=== PATIENT | female | born 1930 | race Caucasian/White ===

== ENCOUNTER → 2017-02-16 | Outpatient (CLI) | payer MEDICARE ==
[~2017-02-16] MED LIST: ALPR0.25 PO; FURO20TA PO; HYDR-3583 PO; HYDR25TA5 PO; LISI2.5T3 PO; MOBI15TA PO; OMEP20CA2 PO; OXYB5TAB10 PO; POTA8CAP PO; SOMA250T PO
--- NOTE | 2017-02-17 10:45 | EKG ---
Date Performed: 02/16/2017 Time Performed: 12:43:05 PTAGE: 86 years EKG: Sinus rhythm RIGHT BUNDLE BRANCH BLOCK LEFT ANTERIOR FASCICULAR BLOCK POSSIBLE SEPTAL MYOCARDIAL INFARCTION , PRO BABLY OLD ABNORMAL ECG NO PREVIOUS TRACING DOCTOR: Iris Marroquin Interpretating Date/Time 02/17/2017 10:43:21
== END ==
LOC: HCAV 12:34
PROVIDERS: ATTEND Obstetrics & Gynecology Gynecologic Oncology
DX: Z01.810 Encounter for preprocedural cardiovascular examination (principal); R94.31 Abnormal electrocardiogram [ECG] [EKG]
CPT/HCPCS: 93005

== ENCOUNTER 2017-05-14 18:09 | Emergency (ER) | payer MEDICARE ==
[~2017-05-14] VITALS: Ht 154.9 cm; Wt 88.5 kg
[2017-05-14 18:46] VITALS: BP 148/78; PULSE 85; RESP 16; TEMP 98.4; O2SAT 99
[2017-05-14] MEDS ORDERED: SODIUM CHLOR 0.9% 1000 ML INJ 1,000 ML IV SCH (19:07)
[2017-05-14 19:15] VITALS: BP 119/56; PULSE 83; RESP 18; O2SAT 99
[2017-05-14] MEDS ORDERED: SODIUM CHLORIDE 0.9% FLUSH 10 ML FLUSH IV FLUSH PRN (19:15)
--- NOTE | 2017-05-14 19:15 | PD ---
HPI Chief Complaint: Complaint Time Seen by Provider: 18:59 Travel History International Travel<30 days: No Contact w/Intl Traveler<30days: No Traveled to known affect area: No History of Present Illness HPI Patient is an 87-year-old female with history of cervical cancer, presents to emergency room with complaints of possible cystitis. As for patient, she is currently receiving radiation treatments for her her cervical cancer. She is getting these treatments by Dr. Barton, her oncologist. Patient reports that since of last week, she has had dysuria, urinary urgency and frequency. Patient denies fevers, reports that she is feeling chills. Denies any other complaints. PFSH Past Medical History Cancer: Yes (CERVIX) Cardiovascular Problems: No Diabetes: No Endocrine: No Genitourinary: No Hepatitis: No Hiatal Hernia: No Immune Disorder: No Musculoskeletal: Yes (ARTHRITIS GENERALIZD) Psychiatric: No Reproductive: No Respiratory: No Immunizations Current: Yes Thyroid Disease: No Past Surgical History Abdominal Surgery: Yes (APEDECTOMY CHOLECYSTECTOMY) AICD: No Cardiac Surgery: No Ear Surgery: No Eye Surgery: No Genitourinary Surgery: No Gynecologic Surgery: Yes (C SECTION X2) Joint Replacement: Yes ( BILATERAL KNEES REPLACE) Oral Surgery: No Pacemaker: No Thoracic Surgery: No Social History Tobacco Use: No Substance Use: No Allergies-Medications (Allergen,Severity, Reaction): Coded Allergies: Benzocaine (Verified Allergy, Mild, rash, 04/28/17) Reported Meds & Prescriptions Reported Meds & Active Scripts Active Keflex (Cephalexin) 500 Mg Capsule 500 Mg PO Q6H 10 Days Reported Aspirin Adult Low Strength (Aspirin) 81 Mg Tabdr 162 Mg PO DAILY Hydroxyzine HCl 25 Mg Tab 25 Mg PO QID PRN Alprazolam 0.25 Mg Tab 0.25 Mg PO Q4H PRN Potassium Chloride ER (Potassium Chloride) 8 Meq Cap 8 Meq PO DAILY Lisinopril 2.5 Mg Tab 2.5 Mg PO DAILY Furosemide 20 Mg Tab 20 Mg PO BID Mobic (Meloxicam) 15 Mg Tab 15 Mg PO DAILY Hydrocodone-Acetaminophen 10-325 mg Tab 1 Tab PO Q6H PRN Omeprazole 20 Mg Cap 20 Mg PO DAILY Review of Systems General / Constitutional: No: Fever Eyes: No: Visual changes HENT: No: Headaches Cardiovascular: No: Chest Pain or Discomfort Respiratory: No: Shortness of Breath Gastrointestinal: No: Abdominal Pain Genitourinary: Positive: Urgency, Frequency, Dysuria, Flank Pain, No: Hematuria Musculoskeletal: No: Pain Skin: No Rash Neurologic: No: Weakness Psychiatric: No: Depression Endocrine: No: Polydipsia Hematologic/Lymphatic: No: Easy Bruising Physical Exam Narrative GENERAL: NAD, nontoxic appearing SKIN: Focused skin assessment warm/dry. HEAD: Atraumatic. Normocephalic. EYES: Pupils equal and round. No scleral icterus. No injection or drainage. ENT: No nasal bleeding or discharge. Mucous membranes pink and moist. NECK: Trachea midline. No JVD. CARDIOVASCULAR: Regular rate and rhythm. No murmur appreciated. RESPIRATORY: No accessory muscle use. Clear to auscultation. Breath sounds equal bilaterally. GASTROINTESTINAL: Abdomen soft, non-tender, nondistended. Hepatic and splenic margins not palpable. Patient with b/l flank pain MUSCULOSKELETAL: No obvious deformities. No clubbing. No cyanosis. No edema. NEUROLOGICAL: Awake and alert. No obvious cranial nerve deficits. Motor grossly within normal limits. Normal speech. PSYCHIATRIC: Appropriate mood and affect; insight and judgment normal. Data Data Last Documented VS Vital Signs Date Time Temp Pulse Resp B/P Pulse Ox O2 Delivery O2 Flow Rate FiO2 05/14/17 21:20 65 18 105/53 94 Room Air 05/14/17 18:46 98.4 Orders Basic Metabolic Panel (Bmp) (05/14/17 19:07) Complete Blood Count With Diff (05/14/17 19:07) Urinalysis - C+S If Indicated (05/14/17 19:07) Iv Access Insert/Monitor (05/14/17 19:07) Sodium Chlor 0.9% 1000 Ml Inj (Ns 1000 M (05/14/17 19:07) Sodium Chloride 0.9% Flush (Ns Flush) (05/14/17 19:15) Urine Culture (05/14/17 19:25) Ceftriaxone Inj (Rocephin Inj) (05/14/17 20:30) Labs Laboratory Tests Test 05/14/17 05/14/17 19:25 19:30 Urine Color YELLOW Urine Turbidity CLOUDY Urine pH 5.5 Urine Specific Spring 1.017 Urine Protein TRACE mg/dL Urine Glucose (UA) NEG mg/dL Urine Ketones NEG mg/dL Urine Occult Blood SMALL Urine Nitrite NEG Urine Bilirubin NEG Urine Urobilinogen LESS THAN 2.0 MG/DL Urine Leukocyte Esterase LARGE Urine RBC 10 /hpf Urine WBC /hpf Urine WBC Clumps MANY Urine Bacteria OCC /hpf Urine Mucus FEW /lpf Microscopic Urinalysis Comment CULTURE INDICATED Sodium Level 140 MEQ/L Potassium Level 4.6 MEQ/L Chloride Level 107 MEQ/L Carbon Dioxide Level 26.4 MEQ/L Anion Gap 7 MEQ/L Blood Urea Nitrogen 50 MG/DL Creatinine 1.87 MG/DL Estimat Glomerular Filtration 25 ML/MIN Rate Random Glucose 106 MG/DL Calcium Level 8.5 MG/DL White Blood Count 6.4 TH/MM3 Red Blood Count 2.68 MIL/MM3 Hemoglobin 9.0 GM/DL Hematocrit 26.8 % Mean Corpuscular Volume 100.0 FL Mean Corpuscular Hemoglobin 33.6 PG Mean Corpuscular Hemoglobin 33.6 % Concent Red Cell Distribution Width 12.6 % Platelet Count 164 TH/MM3 Mean Platelet Volume 7.6 FL Neutrophils (%) (Auto) 74.7 % Lymphocytes (%) (Auto) 12.4 % Monocytes (%) (Auto) 10.4 % Eosinophils (%) (Auto) 2.1 % Basophils (%) (Auto) 0.4 % Neutrophils # (Auto) 4.8 TH/MM3 Lymphocytes # (Auto) 0.8 TH/MM3 Monocytes # (Auto) 0.7 TH/MM3 Eosinophils # (Auto) 0.1 TH/MM3 Basophils # (Auto) 0.0 TH/MM3 CBC Comment DIFF FINAL Differential Comment MDM Medical Decision Making Medical Screen Exam Complete: Yes Emergency Medical Condition: Yes Interpretation(s) Vital Signs Date Time Temp Pulse Resp B/P Pulse Ox O2 Delivery O2 Flow Rate FiO2 05/14/17 18:46 98.4 85 16 148/78 99 Differential Diagnosis Differential includes cervicitis, pyelonephritis, renal failure, electrolyte abnormality Narrative Course Patient is an 87-year-old female who was sent to the emergency room by her primary care doctor, Dr. Brown for evaluation of possible cystitis. She does have history of cervical cancer and is being treated by Dr. Barton, her oncologist with radiation treatments. Last treatment was on 05/07/17. Patient has been having dysuria, urinary urgency and frequency since last . Lab work ordered to evaluate for renal function. UA ordered to evaluate for possible cystitis Vital Signs Date Time Temp Pulse Resp B/P Pulse Ox O2 Delivery O2 Flow Rate FiO2 05/14/17 21:20 65 18 105/53 94 Room Air 05/14/17 19:15 83 18 119/56 99 Room Air 05/14/17 18:46 98.4 85 16 148/78 99 Laboratory Tests Test 05/14/17 05/14/17 19:25 19:30 Urine Color YELLOW (YELLW/STRAW) Urine Turbidity CLOUDY (CLEAR) Urine pH 5.5 (5.0-8.5) Urine Specific Spring 1.017 (1.002-1.035) Urine Protein TRACE mg/dL (NEG-TRACE) Urine Glucose (UA) NEG mg/dL (NEG) Urine Ketones NEG mg/dL (NEG) Urine Occult Blood SMALL (NEG) Urine Nitrite NEG (NEG) Urine Bilirubin NEG (NEG) Urine Urobilinogen LESS THAN 2.0 MG/DL (LESS THAN 2.0) Urine Leukocyte Esterase LARGE (NEG) Urine RBC 10 /hpf (0-3) Urine WBC /hpf (0-5) Urine WBC Clumps MANY (NONE) Urine Bacteria OCC /hpf (NONE) Urine Mucus FEW /lpf (OCC) Microscopic Urinalysis Comment CULTURE INDICATED White Blood Count 6.4 TH/MM3 (4.0-11.0) Red Blood Count 2.68 MIL/MM3 (4.00-5.30) Hemoglobin 9.0 GM/DL (11.6-15.3) Hematocrit 26.8 % (35.0-46.0) Mean Corpuscular Volume 100.0 FL (80.0-100.0) Mean Corpuscular Hemoglobin 33.6 PG (27.0-34.0) Mean Corpuscular Hemoglobin 33.6 % Concent (32.0-36.0) Red Cell Distribution Width 12.6 % (11.6-17.2) Platelet Count 164 TH/MM3 (150-450) Mean Platelet Volume 7.6 FL (7.0-11.0) Neutrophils (%) (Auto) 74.7 % (16.0-70.0) Lymphocytes (%) (Auto) 12.4 % (9.0-44.0) Monocytes (%) (Auto) 10.4 % (0.0-8.0) Eosinophils (%) (Auto) 2.1 % (0.0-4.0) Basophils (%) (Auto) 0.4 % (0.0-2.0) Neutrophils # (Auto) 4.8 TH/MM3 (1.8-7.7) Lymphocytes # (Auto) 0.8 TH/MM3 (1.0-4.8) Monocytes # (Auto) 0.7 TH/MM3 (0-0.9) Eosinophils # (Auto) 0.1 TH/MM3 (0-0.4) Basophils # (Auto) 0.0 TH/MM3 (0-0.2) CBC Comment DIFF FINAL Differential Comment Sodium Level 140 MEQ/L (136-145) Potassium Level 4.6 MEQ/L (3.5-5.1) Chloride Level 107 MEQ/L (98-107) Carbon Dioxide Level 26.4 MEQ/L (21.0-32.0) Anion Gap 7 MEQ/L (5-15) Blood Urea Nitrogen 50 MG/DL (7-18) Creatinine 1.87 MG/DL (0.50-1.00) Estimat Glomerular Filtration 25 ML/MIN (>89) Rate Random Glucose 106 MG/DL (74-106) Calcium Level 8.5 MG/DL (8.5-10.1) Patient with cr of 1.87 (baseline cr 1.36), ua positive for large leuk esteraste , many wbc, occ bacteria, UC sent Plan to treat for cystitis and have patient follow up with her pcp Diagnosis Primary Impression: Cystitis Additional Impression: Renal failure Qualified Code: N17.9 - Acute renal failure superimposed on chronic kidney disease, unspecified CKD stage, unspecified acute renal failure type Patient Instructions: General Instructions Additional Instructions: Please follow-up with her primary care doctor Return to the emergency room as needed Return to emergency with symptoms worsen or progress Please follow-up with all cultures from today Take all antibiotics as prescribed Med/Other Pt SpecificInfo: Prescription(s) given Scripts Cephalexin (Keflex)500 Mg [id number] Mg PO Q6H 10 Days Ref 0 Prov:Reena Grossman DO 05/14/17 Disposition: 01 DISCHARGE HOME Condition: Stable Reena Grossman DO May 14, 2017 19:15
[2017-05-14] MEDS ORDERED: HYDR-3133 PO (19:54)
[2017-05-14] MEDS ORDERED: ASPI1TAB91 PO (19:54)
[2017-05-14 19:58] LABS: AUTOMATED NEUTROPHIL # 4.8 TH/MM3 (1.8-7.7); BASOPHIL % 0.4 % (0.0-2.0); EOSINOPHIL # 0.1 TH/MM3 (0-0.4); EOSINOPHIL % 2.1 % (0.0-4.0); HEMATOCRIT 26.8 % (35.0-46.0); HEMO FLAGS DIFF FINAL; LYMPH % 12.4 % (9.0-44.0); LYMPHOCYTE # 0.8 TH/MM3 (1.0-4.8); MEAN CORPUSCULAR HEMOGLOBIN 33.6 PG (27.0-34.0); MEAN CORPUSCULAR HGB CONC 33.6 % (32.0-36.0); MONO % 10.4 % (0.0-8.0); NEUT % 74.7 % (16.0-70.0); PLATELET COUNT 164 TH/MM3 (150-450); RED BLOOD COUNT 2.68 MIL/MM3 (4.00-5.30); RED CELL DISTRIBUTION WIDTH 12.6 % (11.6-17.2); WHITE BLOOD COUNT 6.4 TH/MM3 (4.0-11.0)
[2017-05-14 20:04] LABS: BACTERIA, URINE OCC /hpf; BLOOD, URINE SMALL (NEG); COMMENT (UR) CULTURE INDICATED; CULTURE IF INDICATED CULTURE INDICATED; GLUCOSE,URINE NEG (NEG); KETONE, URINE NEG (NEG); MUCUS URINE FEW /lpf (OCC); NITRITE,URINE NEG (NEG); PH, URINE 5.5 (5.0-8.5); URINE COLOR YELLOW (YELLW/STRAW)
[2017-05-14 20:18] LABS: BICARBONATE 26.4 MEQ/L (21.0-32.0); POTASSIUM 4.6 MEQ/L (3.5-5.1)
[2017-05-14] MEDS ORDERED: cefTRIAXone INJ 1,000 MG in SODIUM CHLORIDE 0.9% INJ 100 ML IV ONE (20:30)
[2017-05-14 21:20] VITALS: BP 105/53; PULSE 65; RESP 18; O2SAT 94
[2017-05-14] MEDS ORDERED: CEPH-460 PO (21:33)
== END 2017-05-14 21:56 | disposition home or self-care (01) ==
LOC: NEPC 18:09
DX: N30.90 Cystitis, unspecified without hematuria (principal); N17.9 Acute kidney failure, unspecified; C53.9 Malignant neoplasm of cervix uteri, unspecified
CPT/HCPCS: 80048; 81001; 85025; 87077; 87086; 87186; 96374; 99284; J0696; J7030